=== PATIENT | male | born 1990 | race Caucasian/White ===

== ENCOUNTER → 2019-03-15 | Outpatient (CLI) | payer BC ==
[2019-03-15 16:22] VITALS: BP 122/83; PULSE 106; RESP 16; TEMP 98.7; BMI 55.3
--- NOTE | 2019-03-15 16:48 | P.HPBAR ---
Bariatric H&P - History & Physicial H&P Date: 03/15/19 History & Physicial: Visit/CC: Initial Visit Patient initial contact: Initial weight: 175.087 kg Initial weight in pounds: 386.00 Height: 5 ft 10 in Initial BMI: 55.3 Last weight: Current weight: 175.087 kg Current weight in pounds: 386.00 Current BMI: 55.3 [place] body weight (based on NIH guidelines): 75.296 kg Excess body weight loss: 0.0% The patient is a 28 year-old M who presents for Bariatric Assessment. Patient presents today for bariatric evaluation. Patient's morbid obesity BMI 55. He wishes to undergo sleeve gastrectomy. He has several comorbidities with morbid obesity. Past Medical History Past Medical History: Asthma History of Any Multi-Drug Resistant Organisms: None Reported Past Surgical History: Orthopedic Surgery Past Psychological History: No Psychological Hx Reported Smoking Status: Current every day smoker Past Alcohol Use History: None Reported, Occasional Past Drug Use History: None Reported Surgical - Exam Vital Signs Temp Pulse Resp BP 98.7 F 106 H 16 122/83 03/15/19 16:16 03/15/19 16:16 03/15/19 16:16 03/15/19 16:16 - General well developed - Eyes PERRL - ENT normal pinna, normal nares - Neck no masses - Respiratory normal expansion - Cardiovascular Rhythm: regular - Abdomen Abdomen: soft, non tender Bariatric Assessment & Plan Plan: Morbid obesity, BMI 55. Patient will be scheduled for EGD. Patient is an excellent understanding sleeve gastrectomy. We went over the risks and benefits of procedure. Bariatric Checklist Checklist: Plan: Checklist: EGD: 1. Hiatal hernia: 2. H. Pylori: HgbA1c: Vitamin D: Smoking: Current every day smoker Primary care physician referral: Mavis Negrete Psychiatry clearance: Cardiology clearance: Sleep study: Diet journal: VTE risk score: VTE risk level: Rehab needs at discharge:
[2019-03-15 17:57] LABS: HCT 44.2 % (39.0-53.0); HGB 15.5 gm/dL (13.0-17.5); MCH 30.4 pg (25.0-35.0); MCV 86.9 fL (80.0-100.0); Platelet Count 301 k/uL (150-450); RBC 5.09 m/uL (4.30-5.90); RDW 12.8 % (11.5-15.5); WBC 12.9 k/uL (3.8-10.6)
[2019-03-16 01:13] LABS: Iron Saturation 17.61 (15.00-50.00)
[2019-03-16 01:15] LABS: African American GFR (CKD) 138.9 (60.0-200.0); Albumin 4.6 g/dL (3.80-4.90); Albumin/Globulin Ratio 1.92 (1.60-3.17); Anion Gap 9.6 mmol/L (4.00-12.00); BUN/Creat Ratio 11.25 Ratio (12.00-20.00); Calcium 9.5 mg/dL (8.7-10.3); Carbon Dioxide 24.4 mmol/L (21.6-31.8); Globulin 2.4 g/dL (1.6-3.3); Total Bilirubin 0.3 mg/dL (0.3-1.2)
[2019-03-16 01:21] LABS: Ferritin 109.5 ng/mL (22.0-322.0)
[2019-03-16 01:28] LABS: Folate, Serum 12.4 ng/mL
== END ==
LOC: BARWHC3 15:58
PROVIDERS: ATTEND Surgery
DX: E66.01 Morbid (severe) obesity due to excess calories (principal); F17.200 Nicotine dependence, unspecified, uncomplicated; E61.1 Iron deficiency; E44.0 Moderate protein-calorie malnutrition; Z01.818 Encounter for other preprocedural examination; Z68.43 Body mass index [BMI] 50.0-59.9, adult; Z88.1 Allergy status to other antibiotic agents
CPT/HCPCS: 80053; 82306; 82607; 82728; 82746; 83540; 83550; 84425; 84443; 85027; 93005; 99211

== ENCOUNTER 2019-03-29 11:24 | Day surgery (SDC) | payer BC ==
[2019-03-25 15:32] VITALS: BMI 55.3
[~2019-03-29 11:24] MED LIST: LACTATED RINGERS 1,000 ML IV SCH; LIDOCAINE 1% 20 ML VIAL (10MG/ML) FOR IV START INTRADERMA PRN
[2019-03-29 11:48] VITALS: TEMP 97.1
[2019-03-29] MEDS ORDERED: PROPOFOL 10 MG/ML 20 ML VIAL IV ONE (12:02)
[2019-03-29] MEDS ORDERED: LIDOCAINE 1% INJ 10MG/ML (20 ML MDV) ONE (12:02)
--- NOTE | 2019-03-29 12:11 | P.GSHP ---
History of Present Illness H&P Date: 03/29/19 Chief Complaint: GERD, morbid obesity This is a 28-year-old male who presents today for EGD. He's had issues with GERD. Patient underwent workup for sleeve gastrectomy. His BMI is 55. Past Medical History Past Medical History: Asthma History of Any Multi-Drug Resistant Organisms: None Reported Past Surgical History: Orthopedic Surgery Additional Past Surgical History / Comment(s): LT KNEE SX Past Anesthesia/Blood Transfusion Reactions: No Reported Reaction Smoking Status: Current every day smoker - Past Family History Father Family Medical History: Cancer Medications and Allergies Home Medications Medication Instructions Recorded Confirmed Type Albuterol Nebulized [Ventolin 1 neb INHALATION Q4-6H PRN 05/17/14 03/25/19 History Nebulized] Albuterol Sulfate [Ventolin HFA] 1 - 2 puff INHALATION Q6H PRN 05/17/14 03/29/19 History Allergies Allergy/AdvReac Type Severity Reaction Status Date / Time cefprozil [From Cefzil] Allergy Rash/Hives Verified 03/29/19 11:39 Surgical - Exam Vital Signs Temp Pulse Resp BP Pulse Ox 97.1 F L 73 16 113/62 96 03/29/19 11:47 03/29/19 11:47 03/29/19 11:47 03/29/19 11:47 03/29/19 11:47 - General well developed, well nourished, no distress - Eyes PERRL - ENT normal pinna - Neck no masses - Respiratory normal expansion - Cardiovascular Rhythm: regular - Abdomen Abdomen: soft, non tender Assessment and Plan Assessment: Morbid obesity, BMI 55. Patient will undergo EGD.
--- NOTE | 2019-03-29 12:14 | P.OP ---
Date of Procedure: 03/29/19 Preoperative Diagnosis: Morbid obesity, BMI 55 GERD Postoperative Diagnosis: Antral gastritis Procedure(s) Performed: EGD Anesthesia: MAC Surgeon: Misael Jaffe Pathology: other (Antrum) Condition: stable Disposition: PACU Description of Procedure: The patient's placed on the endoscopy table in the lateral position. He received IV sedation. The gastroscope placed oropharynx passed in the esophagus into the stomach. Scope was then placed through the pylorus. The first and second portion duodenum appeared normal. Scope was then brought back the antrum and this was minimal inflamed. A random biopsies performed. Scope was then retroflexed and the remainder of the stomach appeared normal. There is no significant hiatal hernia. The GE junction was at 47 is. The distal esophagus appeared normal. The proximal esophagus appeared normal. Scope was withdrawn for patient.
[2019-03-29 12:29] VITALS: RESP 18
[2019-03-29 12:40] VITALS: BP 117/75; PULSE 76
== END 2019-03-29 12:56 | disposition home or self-care (01) ==
LOC: ORWHC2ENDO 11:24
PROVIDERS: ATTEND Surgery
DX: K29.50 Unspecified chronic gastritis without bleeding (principal); E66.01 Morbid (severe) obesity due to excess calories; F17.200 Nicotine dependence, unspecified, uncomplicated; J45.909 Unspecified asthma, uncomplicated; K21.9 Gastro-esophageal reflux disease without esophagitis; Z68.43 Body mass index [BMI] 50.0-59.9, adult; Z88.1 Allergy status to other antibiotic agents
CPT/HCPCS: 88305; 43239; J2001; J2704

== ENCOUNTER → 2019-03-29 | Outpatient (CLI) | payer BC ==
[2019-03-29 13:44] VITALS: BMI 55.6
== END ==
LOC: BARWHC3 08:41
PROVIDERS: ATTEND Surgery
DX: E66.01 Morbid (severe) obesity due to excess calories (principal); Z68.43 Body mass index [BMI] 50.0-59.9, adult
CPT/HCPCS: 97804

== ENCOUNTER → 2019-05-03 | Outpatient (CLI) | payer BC ==
[2019-05-03 13:18] VITALS: BP 144/83; PULSE 102; RESP 16; TEMP 98.6; BMI 53.9
== END | disposition home or self-care (01) ==
LOC: BARWHC3 12:56
PROVIDERS: ATTEND Surgery
DX: E66.01 Morbid (severe) obesity due to excess calories (principal); Z68.43 Body mass index [BMI] 50.0-59.9, adult
CPT/HCPCS: 99211

== ENCOUNTER → 2019-05-03 | Outpatient (CLI) | payer BC ==
--- NOTE | 2019-05-03 14:03 | P.HPBAR ---
Bariatric H&P - History & Physicial H&P Date: 05/03/19 History & Physicial: Visit/CC: Patient initial contact: Initial weight: 175.087 kg Initial weight in pounds: Height: Initial BMI: Last weight: Current weight: Current weight in pounds: Current BMI: [place] body weight (based on NIH guidelines): Excess body weight loss: The patient is a 28 year-old M who presents for Bariatric Assessment. Patient presents today for presurgical visit. He is scheduled for gastric sleeve surgery on May 13. He is morbidly obese with BMI over 50. Past Medical History Past Medical History: Asthma History of Any Multi-Drug Resistant Organisms: None Reported Past Surgical History: Orthopedic Surgery Past Psychological History: No Psychological Hx Reported Smoking Status: Current every day smoker Past Alcohol Use History: None Reported, Occasional Past Drug Use History: None Reported Surgical - Exam - General well developed, well nourished, no distress - Eyes PERRL - ENT normal pinna - Neck no masses - Respiratory normal expansion - Cardiovascular Rhythm: regular - Abdomen Abdomen: soft, non tender Bariatric Assessment & Plan Plan: Morbid obesity. Patient will undergo laparoscopic sleeve gastrectomy. We went over the risks and benefits of procedure including possible staple line disruption, bleeding or scarring. Patient is an excellent understanding of the sleeve gastrectomy. Bariatric Checklist Checklist: Plan: Checklist: EGD: 1. Hiatal hernia: 2. H. Pylori: HgbA1c: Vitamin D: Smoking: Current every day smoker Primary care physician referral: Mavis Negrete Psychiatry clearance: Cardiology clearance: Sleep study: Diet journal: VTE risk score: VTE risk level: Rehab needs at discharge:
[2019-05-03 14:54] LABS: Basophils # (A) 0.2 k/uL (0-0.2); Basophils % (A) 1 %; Eosinophils # (A) 0.2 k/uL (0-0.7); Eosinophils % (A) 2 %; HCT 51.8 % (39.0-53.0); HGB 17.7 gm/dL (13.0-17.5); Lymphocytes # (A) 3.8 k/uL (1.0-4.8); Lymphocytes % (A) 29 %; MCHC 34.2 g/dL (31.0-37.0); MCV 87.5 fL (80.0-100.0); Mean Platelet Volume 6.3; Monocytes # (A) 0.6 k/uL (0-1.0); Monocytes % (A) 5 %; Neutrophils # (A) 8.2 k/uL (1.3-7.7); Neutrophils % (A) 62 %; Platelet Count 339 k/uL (150-450); RBC 5.92 m/uL (4.30-5.90); RDW 12.6 % (11.5-15.5); WBC 13.1 k/uL (3.8-10.6)
[2019-05-03 15:11] LABS: ALT 57 U/L (21-72); AST 45 U/L (17-59); African American GFR (CKD) >90 (>60 ml/min/1.73 sqM); Albumin 4.9 g/dL (3.5-5.0); Alkaline Phosphatase 72 U/L (38-126); Anion Gap 12 mmol/L; Blood Urea Nitrogen 14 mg/dL (9-20); Calcium 9.9 mg/dL (8.4-10.2); Carbon Dioxide 21 mmol/L (22-30); Chloride 105 mmol/L (98-107); Glucose 95 mg/dL (74-99); Non-African American GFR(CKD) >90 (>60 ml/min/1.73 sqM); Potassium 4.7 mmol/L (3.5-5.1); Sodium 138 mmol/L (137-145); Total Bilirubin 0.8 mg/dL (0.2-1.3); Total Protein 8.5 g/dL (6.3-8.2)
== END | disposition home or self-care (01) ==
LOC: LABPAT 13:44
PROVIDERS: ATTEND Surgery
DX: Z01.812 Encounter for preprocedural laboratory examination (principal)
CPT/HCPCS: 36415; 80053; 85025

== ENCOUNTER 2019-05-13 06:04 | Inpatient (IN) | payer BC ==
[2019-05-11 16:03] VITALS: BMI 54.1
[~2019-05-13 06:04] MED LIST changes: +DEXAMETHASONE SOD PHOSPHATE 10 MG/ML 1 ML VIAL IV ONE; +ENOXAPARIN 40 MG/0.4 ML SYRINGE SQ ONE; -LACTATED RINGERS 1,000 ML IV SCH; -LIDOCAINE 1% 20 ML VIAL (10MG/ML) FOR IV START INTRADERMA PRN; +ONDANSETRON 4 MG/2 ML VIAL IVP ONE; +ONDANSETRON 4 MG/2 ML VIAL IVP PRN; +ceFAZolin 3 GM in SODIUM CHLORIDE 0.9% 100 ML IVPB ONE
[2019-05-13] MEDS ORDERED: GENTAMICIN IVPB ONE (06:30)
[2019-05-13] MEDS ORDERED: CLINDAMYCIN 900 MG in DEXTROSE 5% IN WATER 50 ML IVPB ONE ×2 (06:30)
[2019-05-13] MEDS ORDERED: SODIUM CHLORIDE 0.9% IVPB ONE (06:30)
[2019-05-13] MEDS: LACTATED RINGERS 1,000 ML IV SCH ×2 (06:43→21:33)
[2019-05-13] MEDS ORDERED: METHYLENE BLUE 50 MG/10 ML AMPUL IRRIGATION ONE ×2 (07:36→08:27)
[2019-05-13] MEDS ORDERED: BUPIVACAIN-EPI 0.25%-1:200,000 30 ML VIAL SQ ONE ×2 (07:36→08:27)
[2019-05-13] MEDS ORDERED: SUCCINYLCHOLINE CHLORIDE VIAL 200 MG/10 ML VIAL IV ONE (07:39)
[2019-05-13] MEDS ORDERED: GLYCOPYRROLATE 0.2 MG/ML 2 ML VIAL ONE (07:39)
[2019-05-13] MEDS ORDERED: PROPOFOL 10 MG/ML 20 ML VIAL IV ONE (07:39)
[2019-05-13] MEDS ORDERED: KETAMINE 10 MG/ML 20 ML VIAL ONE (07:39)
[2019-05-13] MEDS ORDERED: diphenhydrAMINE 50 MG/ML 1 ML VIAL ONE (07:39)
[2019-05-13] MEDS ORDERED: fentaNYL (PF) 50 MCG/ML 2 ML AMP ONE (07:39)
[2019-05-13] MEDS ORDERED: NEOSTIGMINE 1 MG/ML 10 ML VIAL ONE (07:39)
[2019-05-13] MEDS ORDERED: MIDAZOLAM 2 MG/2 ML VIAL ONE (07:39)
[2019-05-13] MEDS ORDERED: ROCURONIUM BROMIDE 10 MG/ML 10 ML VIAL IV ONE (07:39)
[2019-05-13] MEDS ORDERED: LIDOCAINE 1% INJ 10MG/ML (20 ML MDV) ONE (07:39)
--- NOTE | 2019-05-13 07:50 | P.GSHP ---
History of Present Illness H&P Date: 05/13/19 Chief Complaint: Morbid obesity This is a 49-year-old male who presents today for laparoscopic sleeve gastrectomy. Patient had complaints of morbid obesity. His BMI is 51. He has multiple comorbidities. Patient aware the risks of surgery including gastric staple line disruption, bleeding or scarring. Past Medical History Past Medical History: Asthma, Sleep Apnea/CPAP/BIPAP Additional Past Medical History / Comment(s): cpap machine History of Any Multi-Drug Resistant Organisms: None Reported Past Surgical History: Orthopedic Surgery Additional Past Surgical History / Comment(s): meniscus repair, facial reconstruction surgery Past Anesthesia/Blood Transfusion Reactions: No Reported Reaction Smoking Status: Current every day smoker - Past Family History Father Family Medical History: Cancer Medications and Allergies Home Medications Medication Instructions Recorded Confirmed Type Albuterol Nebulized [Ventolin 1 neb INHALATION Q4-6H PRN 05/17/14 05/11/19 History Nebulized] Albuterol Sulfate [Ventolin HFA] 1 - 2 puff INHALATION Q6H PRN 05/17/14 05/11/19 History Allergies Allergy/AdvReac Type Severity Reaction Status Date / Time cefprozil [From Cefzil] Allergy Rash/Hives Verified 05/13/19 06:17 Surgical - Exam Vital Signs Temp Pulse Resp BP Pulse Ox 98.0 F 80 18 116/50 97 05/13/19 06:30 05/13/19 06:30 05/13/19 06:30 05/13/19 06:30 05/13/19 06:30 - General well developed, well nourished, no distress - Eyes PERRL - ENT normal pinna - Neck no masses - Respiratory normal expansion - Cardiovascular Rhythm: regular - Abdomen Abdomen: soft, non tender Assessment and Plan Assessment: Were obesity, BMI 51. We'll perform laparoscopic sleeve gastrectomy.
--- NOTE | 2019-05-13 09:16 | P.OP ---
Date of Procedure: 05/13/19 Preoperative Diagnosis: Morbid obesity, BMI 51 Postoperative Diagnosis: Morbid obesity, BMI 51 Procedure(s) Performed: Laparoscopic sleeve gastrectomy Anesthesia: JUAN MIGUEL Surgeon: Misael Jaffe Estimated Blood Loss (ml): 5 Pathology: other Condition: stable Disposition: PACU Description of Procedure: The patient was placed on the operating room table in the supine position. She received general anesthesia and then was placed in dorsal lithotomy position. Her abdomen was prepped and draped in sterile fashion. The skin incision sites were anesthetized 1% local Xylocaine. And then the skin was incised with an 11 blade in the left lateral position. Using a blade less trocar under direct visualization the peritoneal cavity was entered. The abdomen was insufflated and then a 5 mm laparoscope was placed into the peritoneal cavity. A 5 mm trocar was placed in the right epigastric, and right lateral position. A 15 mm trocar was placed in the supra-umbilical position and another 5 mm trocar was placed in the left lateral position. The left lateral lobe of the liver was retracted. The stomach was visualized. The greater curvature of the stomach was then dissected using the Harmonic scissors. The dissection occurred approximately 5 cm from the pylorus to the level of the left sobia. There was no hiatal hernia seen. At this point a 40-Upper Sorbian bougie dilator was placed the oropharynx and passed into the esophagus and into the stomach by the ALGEBRA TEACHER. The sleeve gastrectomy was performed by using the powered echelon stapler with a seam guard buttress material. Sequential firings of the stapler were performed. The gastric remnant was then brought out through the 15 mm trocar site. The dilator was withdrawn. And a orogastric tube was replaced into the stomach. The stomach was insufflated with 200 mL of methylene blue normal saline. There was no evidence of extravasation. The abdomen was irrigated there is no bleeding seen. The Noam-Bryon device was used to close the 15 mm trocar with 0 Vicryl. Skin was closed with interrupted 3-0 Monocryl sutures once the trochars withdrawn. Dermabond dressing was applied. Patient was sent to recovery in stable condition.
[2019-05-13] MEDS ORDERED: ONDANSETRON 4 MG/2 ML VIAL IVP PRN (09:17)
[2019-05-13] MEDS ORDERED: diphenhydrAMINE 50 MG/ML 1 ML VIAL IVP PRN (09:17)
[2019-05-13] MEDS ORDERED: SIMETHICONE 80 MG CHEWABLE PO PRN (09:17)
[2019-05-13] MEDS ORDERED: NALOXONE 0.4 MG/ML 1 ML VIAL IV PRN (09:17)
[2019-05-13] MEDS: HYDROmorphone 0.5 MG/0.5 ML SYRINGE IVP PRN ×6 (09:35→15:31)
[2019-05-13] MEDS ORDERED: diphenhydrAMINE 50 MG/ML 1 ML VIAL IVP ONE ×2 (10:16→10:31)
[2019-05-13] MEDS ORDERED: LACTATED RINGERS 1,000 ML IV ONE (10:31)
[2019-05-13] MEDS: KETOROLAC 30 MG/ML 1 ML VIAL IVP SCH ×2 (12:01→17:31)
[2019-05-13] MEDS: ALBUTEROL NEBULIZED 2.5 MG/3 ML INHALATION SCH ×3 (12:26→21:01)
[2019-05-13] MEDS: 0.9% NACL WITH KCL 20 MEQ/L 1,000 ML IV SCH ×3 (13:44→22:59)
--- NOTE | 2019-05-13 14:54 | P.CONS ---
History of Present Illness - Reason for Consult Sleep apnea, asthma - History of Present Illness Patient is admitted for laparoscopic sleeve gastrectomy. Sepsis underwent surgery patient is complaining of severe pain in the surgical site area when I went into the room patient is snoring deep sleep and awoke him up he was requesting for pain medications. Patient denied any fever chills nausea vomiting . Patient does have history of sleep apnea his CPAP machine at home Review of Systems Except for those mentioned abortively in HPI rest of the review of systems is negative Past Medical History Past Medical History: Asthma, Sleep Apnea/CPAP/BIPAP Additional Past Medical History / Comment(s): cpap machine History of Any Multi-Drug Resistant Organisms: None Reported Past Surgical History: Orthopedic Surgery Additional Past Surgical History / Comment(s): meniscus repair, facial reconstruction surgery Past Anesthesia/Blood Transfusion Reactions: No Reported Reaction Past Psychological History: No Psychological Hx Reported Smoking Status: Current every day smoker Past Alcohol Use History: Occasional Additional Past Alcohol Use History / Comment(s): smoker for 16 years 1- 1 1/2ppd Past Drug Use History: None Reported - Past Family History Father Family Medical History: Cancer Medications and Allergies Home Medications Medication Instructions Recorded Confirmed Type Albuterol Nebulized [Ventolin 1 neb INHALATION Q4-6H PRN 05/17/14 05/11/19 History Nebulized] Albuterol Sulfate [Ventolin HFA] 1 - 2 puff INHALATION Q6H PRN 05/17/14 05/11/19 History Allergies Allergy/AdvReac Type Severity Reaction Status Date / Time cefprozil [From Cefzil] Allergy Rash/Hives Verified 05/13/19 06:17 Physical Exam Vitals: Vital Signs Temp Pulse Pulse Resp BP Pulse Ox 05/13/19 12:53 12 05/13/19 12:39 88 05/13/19 12:30 86 05/13/19 11:59 97.7 F 88 12 120/70 91 L 05/13/19 11:15 86 16 120/65 95 05/13/19 10:45 86 14 128/66 92 L 05/13/19 10:30 90 16 136/72 96 05/13/19 10:15 88 14 128/76 96 05/13/19 10:00 92 16 120/62 97 05/13/19 09:47 78 14 112/65 93 L 05/13/19 09:43 88 16 111/75 98 05/13/19 09:30 90 16 89/61 92 L 05/13/19 09:19 79 14 121/59 100 05/13/19 09:12 96.7 F L 78 12 137/59 97 05/13/19 06:30 98.0 F 80 18 116/50 97 Intake and Output 05/12/19 05/13/19 05/13/19 22:59 06:59 14:59 Intake Total 300 769.75 Output Total 5 Balance 300 764.75 Intake: IV 300 769.75 Output: Estimated Blood Loss 5 Other: # Voids 0 Weight 161.4 kg 161.4 kg PHYSICAL EXAMINATION: GENERAL: The patient is alert and oriented x3, not in any acute distress. Morbidly obese HEENT: Pupils are round and equally reacting to light. EOMI. No scleral icterus. No conjunctival pallor. Normocephalic, atraumatic. No pharyngeal erythema. No thyromegaly. CARDIOVASCULAR: S1 and S2 present. No murmurs, rubs, or gallops. PULMONARY: Chest is clear to auscultation, no wheezing or crackles. ABDOMEN: Soft, nontender, nondistended, normoactive bowel sounds. No palpable organomegaly. MUSCULOSKELETAL: No joint swelling or deformity. EXTREMITIES: No cyanosis, clubbing, or pedal edema. NEUROLOGICAL: Gross neurological examination did not reveal any focal deficits. SKIN: No rashes. Assessment and Plan Plan: -Morbid obesity: Status post laparoscopic sleeve gastrectomy pain management due to prophylaxis per primary service -Asthma without any acute exacerbation -sleep apnea patient will be resumed on his CPAP machine
[2019-05-13] MEDS: HYDROcodone/APAP 15 ML SOLUTION PO PRN ×2 (15:07→20:31)
[2019-05-13] MEDS: CLINDAMYCIN 900 MG in DEXTROSE 5% IN WATER 50 ML IVPB SCH ×2 (15:12)
[2019-05-13] MEDS: ENOXAPARIN 60 MG/0.6 ML SYRINGE SQ SCH (20:31)
[2019-05-13] MEDS: HYOSCYAMINE ORAL DROPS 1.875 MG/15 ML BOTTLE PO PRN (22:59)
[2019-05-13] MEDS: HYDROmorphone 1 MG/ML 1 ML SYRINGE IVP PRN (23:00)
[2019-05-14] MEDS: KETOROLAC 30 MG/ML 1 ML VIAL IVP SCH ×4 (00:39→14:53)
[2019-05-14] MEDS: CLINDAMYCIN 900 MG in DEXTROSE 5% IN WATER 50 ML IVPB SCH ×2 (00:40)
[2019-05-14] MEDS: HYDROmorphone 1 MG/ML 1 ML SYRINGE IVP PRN ×2 (03:51→09:57)
[2019-05-14] MEDS: 0.9% NACL WITH KCL 20 MEQ/L 1,000 ML IV SCH (05:58)
[2019-05-14 07:22] LABS: Basophils % (A) 0 %; Eosinophils # (A) 0.1 k/uL (0-0.7); Eosinophils % (A) 0 %; HCT 43.3 % (39.0-53.0); Lymphocytes % (A) 24 %; MCH 29.6 pg (25.0-35.0); MCHC 33.5 g/dL (31.0-37.0); MCV 88.5 fL (80.0-100.0); Mean Platelet Volume 7.5; Monocytes # (A) 0.6 k/uL (0-1.0); Monocytes % (A) 5 %; Neutrophils # (A) 8.8 k/uL (1.3-7.7); Neutrophils % (A) 70 %; Platelet Count 252 k/uL (150-450); RDW 12.5 % (11.5-15.5); WBC 12.6 k/uL (3.8-10.6)
[2019-05-14 07:24] LABS: African American GFR (CKD) >90 (>60 ml/min/1.73 sqM); Anion Gap 9 mmol/L; Blood Urea Nitrogen 7 mg/dL (9-20); Calcium 9.2 mg/dL (8.4-10.2); Carbon Dioxide 21 mmol/L (22-30); Chloride 107 mmol/L (98-107); Magnesium 1.8 mg/dL (1.6-2.3); Non-African American GFR(CKD) >90 (>60 ml/min/1.73 sqM); Phosphorus 4.2 mg/dL (2.5-4.5); Potassium 4.8 mmol/L (3.5-5.1); Sodium 137 mmol/L (137-145)
[2019-05-14 07:26] LABS: HGB 14.5 gm/dL (13.0-17.5)
[2019-05-14] MEDS: ENOXAPARIN 60 MG/0.6 ML SYRINGE SQ SCH (07:57)
[2019-05-14] MEDS: HYOSCYAMINE ORAL DROPS 1.875 MG/15 ML BOTTLE PO PRN ×2 (08:02→14:56)
[2019-05-14 08:13] VITALS: RESP 16
[2019-05-14] MEDS ORDERED: PANTOPRAZOLE 40 MG/10 ML VIAL IV SCH (09:00)
[2019-05-14] MEDS: ALBUTEROL NEBULIZED 2.5 MG/3 ML INHALATION SCH ×2 (09:17→12:41)
--- NOTE | 2019-05-14 11:06 | FL ---
EXAMINATION TYPE: FL UGI DATE OF EXAM: 05/14/2019 CLINICAL HISTORY: Status post gastric sleeve TECHNIQUE: Limited esophagram is performed utilizing Isovue 370. A total of 39 seconds of fluoroscop ic time was utilized during procedure. 16 fluoroscopic images were saved. COMPARISON: None. FINDINGS: The patient swallowed contrast without difficulty or delay. Esophageal peristalsis and mo tility are within normal limits. There is good flow of contrast along the diaphragmatic hiatus into proximal stomach and subsequent flow into gastric sleeve. There is good flow from distal sleeve into pylorus and duodenal sweep. Patient remains asymptomatic. There is no evidence of contrast extravasat ion to suggest leak. IMPRESSION: No evidence of leak or significant obstruction status post recent gastric sleeve surgery.
--- NOTE | 2019-05-14 11:47 | P.DS ---
Providers Date of admission: 05/13/19 06:04 Expected date of discharge: 05/14/19 Attending physician: Misael Jaffe Consults: 05/13/19 09:17 Consult Physician Routine Consulting Provider: Jovani Hendrix Consult Reason/Comments: medical management Do you want consulting provider notified?: Yes Primary care physician: [facility] Course: 28-year-old male who underwent laparoscopic sleeve gastrectomy with Dr. Jaffe. Patient is doing well postoperatively without any immediate complications. Postoperative esophagram completed negative for leak. Patient is tolerating clear liquid diet. Vital signs have been stable. Pain is controlled on oral medications. He is stable for discharge home today. Please see EMR for further hospital course details. Discharge diagnosis 1. Morbid obesity, status post laparoscopic sleeve gastrectomy Nurse practitioner note has been reviewed by physician. Signing provider agrees with the documented findings, assessment, and plan of care. Plan - Discharge Summary New Discharge Prescriptions: New Sucralfate [Carafate] 1 gm PO BID #500 ml Bisacodyl [Dulcolax] 5 mg PO DAILY PRN #10 tablet. PRN Reason: Constipation Simethicone 40 mg/0.6 ml Drops [Mylicon Drops] 40 mg PO PCHS PRN #30 ml PRN Reason: gas Omeprazole 40 mg PO DAILY #30 cap Ondansetron Odt [Zofran Odt] 4 mg PO Q8HR PRN #9 tab PRN Reason: Nausea Hydrocodone/Acetaminophen [[place] 5-325] 1 tab PO Q6HR PRN 3 Days #12 tab PRN Reason: Pain No Action Albuterol Sulfate [Ventolin HFA] 1 - 2 puff INHALATION Q6H PRN PRN Reason: Dyspnea Albuterol Nebulized [Ventolin Nebulized] 1 neb INHALATION Q4-6H PRN PRN Reason: Dyspnea Discharge Medication List Albuterol Nebulized [Ventolin Nebulized] 1 neb INHALATION Q4-6H PRN 05/17/14 [History] Albuterol Sulfate [Ventolin HFA] 1 - 2 puff INHALATION Q6H PRN 05/17/14 [History] Bisacodyl [Dulcolax] 5 mg PO DAILY PRN #10 tablet. 05/14/19 [Rx] Hydrocodone/Acetaminophen [[place] 5-325] 1 tab PO Q6HR PRN 3 Days #12 tab 05/14/19 [Rx] Omeprazole 40 mg PO DAILY #30 cap 05/14/19 [Rx] Ondansetron Odt [Zofran Odt] 4 mg PO Q8HR PRN #9 tab 05/14/19 [Rx] Simethicone 40 mg/0.6 ml Drops [Mylicon Drops] 40 mg PO PCHS PRN #30 ml 05/14/19 [Rx] Sucralfate [Carafate] 1 gm PO BID #500 ml 05/14/19 [Rx] [facility] [facility] [place] [place] [facility] [place] 1 Week Activity/Diet/Wound Care/Special Instructions: No driving while taking [place] No lifting over 10 pounds You may shower. No soaking or tub baths Very light activity until you are reevaluated at your follow up appointment with your surgeon Discharge Disposition: HOME SELF-CARE
[2019-05-14] MEDS: 1: MVI, ADULT NO.4 WITH VIT K 10 ML, THIAMINE 100 MG, FOLIC ACID 1 MG, POTASSIUM CHLORID IV SCH ×12 (11:57→12:23)
[2019-05-14] MEDS: HYDROcodone/APAP 15 ML SOLUTION PO PRN (12:00)
[2019-05-14 14:22] VITALS: BP 109/60; PULSE 64; TEMP 98.4
== END 2019-05-14 15:46 | disposition home or self-care (01) | DRG 621 ==
LOC: 2ORMAIN 06:04 → EDSTATUS 07:45 → 4SSUR 11:32
PROVIDERS: ADMIT Surgery; ATTEND Surgery
PROC: 0DB64Z3 Excision of Stomach, Percutaneous Endoscopic Approach, Vertical (ICD-10-PCS; principal; 2019-05-13 07:40)
DX: E66.01 Morbid (severe) obesity due to excess calories (principal); F17.200 Nicotine dependence, unspecified, uncomplicated; G47.30 Sleep apnea, unspecified; J45.909 Unspecified asthma, uncomplicated; K29.50 Unspecified chronic gastritis without bleeding; Z68.43 Body mass index [BMI] 50.0-59.9, adult; Z99.89 Dependence on other enabling machines and devices; Z98.890 Other specified postprocedural states; Z80.9 Family history of malignant neoplasm, unspecified; Z88.1 Allergy status to other antibiotic agents
CPT/HCPCS: 74240; 80051; 82310; 82565; 83735; 84100; 84520; 85025; 88307; 94640; 94760; 94762

== ENCOUNTER → 2019-05-17 | Outpatient (CLI) | payer BC ==
[~2019-05-17] MED LIST changes: -DEXAMETHASONE SOD PHOSPHATE 10 MG/ML 1 ML VIAL IV ONE; -ENOXAPARIN 40 MG/0.4 ML SYRINGE SQ ONE; -ONDANSETRON 4 MG/2 ML VIAL IVP ONE; -ONDANSETRON 4 MG/2 ML VIAL IVP PRN; +SODIUM CHLORIDE 0.9% 1,000 ML IV ONE; +SODIUM CHLORIDE 0.9% 1,000 ML IV SCH; -ceFAZolin 3 GM in SODIUM CHLORIDE 0.9% 100 ML IVPB ONE
[2019-05-17 11:28] VITALS: BP 116/78; PULSE 88; RESP 20; TEMP 98.1
[2019-05-17] MEDS: SODIUM CHLORIDE 0.9% 500 ML 500 ML in EMPTY BAG 1 BAG IV PRN ×2 (12:34→13:03)
== END | disposition home or self-care (01) ==
LOC: PROCWHC3 11:01
PROVIDERS: ATTEND Surgery
DX: E86.0 Dehydration (principal)
CPT/HCPCS: 96360; 96361

== ENCOUNTER → 2019-05-24 | Outpatient (CLI) | payer BC ==
[2019-05-24 14:35] VITALS: BMI 49.0
[2019-05-24 15:25] VITALS: BP 116/62; PULSE 80; TEMP 98.2
--- NOTE | 2019-06-28 15:27 | P.HPBAR ---
Bariatric H&P - History & Physicial H&P Date: 05/24/19 History & Physicial: Visit/CC: two week follow up sleeve follow up Patient initial contact: Initial weight: 175.087 kg Initial weight in pounds: 386.00 Height: 5 ft 10 in Initial BMI: 55.3 Last weight: Current weight: 155.129 kg Current weight in pounds: 342.00 Current BMI: 49.0 [place] body weight (based on NIH guidelines): 75.296 kg Excess body weight loss: 20.0% The patient is a 28 year-old M who presents for Bariatric Assessment. The patient is 2 weeks postop from sleeve gastrectomy. He is doing quite well. He's had no real complaints. Past Medical History Past Medical History: Asthma Additional Past Medical History / Comment(s): cpap machine History of Any Multi-Drug Resistant Organisms: None Reported Past Surgical History: Orthopedic Surgery Additional Past Surgical History / Comment(s): meniscus repair, facial reconstruction surgery Past Anesthesia/Blood Transfusion Reactions: No Reported Reaction Smoking Status: Current every day smoker - Past Family History Father Family Medical History: Cancer Surgical - Exam Vital Signs Temp Pulse BP 98.2 F 80 116/62 05/24/19 15:20 05/24/19 15:20 05/24/19 15:20 - General well developed, well nourished - Eyes PERRL - Abdomen Incision sites clean and intact Abdomen: soft, non tender Bariatric Assessment & Plan Plan: Status post sleeve gastrectomy. Patient is a well. He'll follow-up in the office in 2 weeks Bariatric Checklist Checklist: Plan: Checklist: EGD: 1. Hiatal hernia: 2. H. Pylori: HgbA1c: Vitamin D: Smoking: Current every day smoker Primary care physician referral: BEATA Psychiatry clearance: Cardiology clearance: Sleep study: Diet journal: VTE risk score: VTE risk level: Rehab needs at discharge:
== END | disposition home or self-care (01) ==
LOC: BARWHC3 12:47
PROVIDERS: ATTEND Surgery
DX: Z48.815 Encounter for surgical aftercare following surgery on the digestive system (principal); Z98.84 Bariatric surgery status; F17.200 Nicotine dependence, unspecified, uncomplicated
CPT/HCPCS: 97802; 99211

== ENCOUNTER → 2019-06-14 | Outpatient (CLI) | payer BC ==
[2019-06-14 15:40] LABS: HCT 51.1 % (39.0-53.0); HGB 16.5 gm/dL (13.0-17.5); MCH 28.1 pg (25.0-35.0); MCHC 32.2 g/dL (31.0-37.0); MCV 87.2 fL (80.0-100.0); Platelet Count 239 k/uL (150-450); RBC 5.86 m/uL (4.30-5.90); RDW 12.9 % (11.5-15.5); WBC 7.1 k/uL (3.8-10.6)
--- NOTE | 2019-06-14 15:42 | P.HPBAR ---
Bariatric H&P - History & Physicial H&P Date: 06/14/19 History & Physicial: Visit/CC: Patient initial contact: Initial weight: 175.087 kg Initial weight in pounds: Height: Initial BMI: Last weight: Current weight: Current weight in pounds: Current BMI: [place] body weight (based on NIH guidelines): Excess body weight loss: The patient is a 28 year-old M who presents for Bariatric Assessment. Patient presents today for sleeve gastrectomy follow-up. He has lost 17 pounds since his last visit. He's had some mild GERD. Past Medical History Past Medical History: Asthma Additional Past Medical History / Comment(s): cpap machine History of Any Multi-Drug Resistant Organisms: None Reported Past Surgical History: Orthopedic Surgery Additional Past Surgical History / Comment(s): meniscus repair, facial reconstruction surgery Past Anesthesia/Blood Transfusion Reactions: No Reported Reaction Past Psychological History: No Psychological Hx Reported Smoking Status: Current every day smoker Past Alcohol Use History: None Reported, Occasional Additional Past Alcohol Use History / Comment(s): smoker for 16 years 1- 1 1/2ppd Past Drug Use History: None Reported - Past Family History Father Family Medical History: Cancer Surgical - Exam - General well developed, well nourished, no distress - ENT normal pinna - Abdomen Abdomen: soft, non tender Bariatric Assessment & Plan Plan: Status post sleeve gastrectomy. Patient's weight loss is excellent. His GERD is minimal and will be observed. He'll follow-up in 4 weeks. Bariatric Checklist Checklist: Plan: Checklist: EGD: 1. Hiatal hernia: 2. H. Pylori: HgbA1c: Vitamin D: Smoking: Current every day smoker Primary care physician referral: BEATA Psychiatry clearance: Cardiology clearance: Sleep study: Diet journal: VTE risk score: VTE risk level: Rehab needs at discharge:
[2019-06-15 02:27] LABS: African American GFR (CKD) 146.8 (60.0-200.0); Albumin 4.5 g/dL (3.80-4.90); Albumin/Globulin Ratio 2.14 (1.60-3.17); Anion Gap 10.4 mmol/L (4.00-12.00); BUN/Creat Ratio 11.43 Ratio (12.00-20.00); Calcium 9.4 mg/dL (8.7-10.3); Carbon Dioxide 23.6 mmol/L (21.6-31.8); Globulin 2.1 g/dL (1.6-3.3); Non-African American GFR(CKD) 126.6 (60.0-200.0); Total Bilirubin 0.5 mg/dL (0.2-1.2); Total Protein 6.6 g/dL (6.2-8.2)
[2019-06-15 02:59] LABS: Folate, Serum 10.4 ng/mL
== END | disposition home or self-care (01) ==
LOC: LABWHC1 14:36
PROVIDERS: ATTEND Surgery
DX: E66.01 Morbid (severe) obesity due to excess calories (principal); E44.0 Moderate protein-calorie malnutrition
CPT/HCPCS: 36415; 80053; 82306; 82607; 82746; 84425; 84443; 85027

== ENCOUNTER → 2019-06-14 | Outpatient (CLI) | payer BC ==
[2019-06-14 14:11] VITALS: BP 119/63; PULSE 88; RESP 16; TEMP 99; BMI 46.9
== END | disposition home or self-care (01) ==
LOC: BARWHC3 13:45
PROVIDERS: ATTEND Surgery
DX: E66.01 Morbid (severe) obesity due to excess calories (principal); Z68.42 Body mass index [BMI] 45.0-49.9, adult; Z98.84 Bariatric surgery status
CPT/HCPCS: 97803; 99211

== ENCOUNTER → 2019-07-12 | Outpatient (CLI) | payer BC ==
[2019-07-12 13:37] VITALS: BP 118/77; PULSE 74; TEMP 98.2; BMI 44.3
--- NOTE | 2019-07-12 14:03 | P.HPBAR ---
Bariatric H&P - History & Physicial H&P Date: 07/12/19 History & Physicial: Visit/CC: 8 week sleeve f/u Patient initial contact: Initial weight: 175.087 kg Initial weight in pounds: 386.00 Height: 5 ft 10 in Initial BMI: 55.3 Last weight: Current weight: 140.16 kg Current weight in pounds: 309.00 Current BMI: 44.3 [place] body weight (based on NIH guidelines): 75.296 kg Excess body weight loss: 35.0% The patient is a 28 year-old M who presents for Bariatric Assessment. Patient presents today for sleeve gastrectomy follow-up. He's had some mild GERD. He is an excellent weight loss. He's lost 16 pounds since last visit. Past Medical History Past Medical History: Asthma Additional Past Medical History / Comment(s): cpap machine History of Any Multi-Drug Resistant Organisms: None Reported Past Surgical History: Bariatric Surgery, Orthopedic Surgery Additional Past Surgical History / Comment(s): meniscus repair, facial reconstruction surgery , gastric sleeve ( 05/13/19) Past Anesthesia/Blood Transfusion Reactions: No Reported Reaction Past Psychological History: No Psychological Hx Reported Smoking Status: Current every day smoker Past Alcohol Use History: None Reported, Occasional Additional Past Alcohol Use History / Comment(s): smoker for 16 years 1- 1 1/2ppd Past Drug Use History: None Reported - Past Family History Father Family Medical History: Cancer Surgical - Exam Vital Signs Temp Pulse BP 98.2 F 74 118/77 07/12/19 13:35 07/12/19 13:35 07/12/19 13:35 - General well developed, well nourished, no distress - Eyes PERRL - ENT normal pinna - Neck no masses - Respiratory normal expansion - Cardiovascular Rhythm: regular - Abdomen Abdomen: soft, non tender Bariatric Assessment & Plan Plan: Status post sleeve gastrectomy. Patient's crit is minimal on be observed. He'll follow-up in one month. Bariatric Checklist Checklist: Plan: Checklist: EGD: 1. Hiatal hernia: 2. H. Pylori: HgbA1c: Vitamin D: Smoking: Current every day smoker Primary care physician referral: Dr. Nacho Alexandre Psychiatry clearance: Cardiology clearance: Sleep study: Diet journal: VTE risk score: VTE risk level: Rehab needs at discharge:
== END | disposition home or self-care (01) ==
LOC: BARWHC3 13:00
PROVIDERS: ATTEND Surgery
DX: Z48.815 Encounter for surgical aftercare following surgery on the digestive system (principal); F17.200 Nicotine dependence, unspecified, uncomplicated; Z98.84 Bariatric surgery status
CPT/HCPCS: 99211

== ENCOUNTER → 2019-08-09 | Outpatient (CLI) | payer BC ==
[2019-08-09 14:46] VITALS: BP 117/69; PULSE 67; RESP 16; TEMP 98; BMI 42.5
[2019-08-09 15:20] LABS: HCT 50.7 % (39.0-53.0); HGB 16.7 gm/dL (13.0-17.5); MCH 28.9 pg (25.0-35.0); MCHC 32.9 g/dL (31.0-37.0); MCV 87.9 fL (80.0-100.0); Mean Platelet Volume 7.6; Platelet Count 269 k/uL (150-450); RBC 5.77 m/uL (4.30-5.90); RDW 13.1 % (11.5-15.5); WBC 11.3 k/uL (3.8-10.6)
[2019-08-09 21:03] LABS: African American GFR (CKD) 156.4 (60.0-200.0); Albumin 4.4 g/dL (3.80-4.90); Albumin/Globulin Ratio 2.1 (1.60-3.17); Anion Gap 4.7 mmol/L (4.00-12.00); BUN/Creat Ratio 13.33 Ratio (12.00-20.00); Calcium 9.1 mg/dL (8.7-10.3); Carbon Dioxide 28.3 mmol/L (21.6-31.8); Globulin 2.1 g/dL (1.6-3.3); Non-African American GFR(CKD) 134.9 (60.0-200.0); Potassium 4.1 mmol/L (3.5-5.5); Total Bilirubin 0.4 mg/dL (0.3-1.2); Total Protein 6.5 g/dL (6.2-8.2)
[2019-08-09 21:13] LABS: Folate, Serum 6.3 ng/mL
== END | disposition home or self-care (01) ==
LOC: BARWHC3 13:07
PROVIDERS: ATTEND Surgery
DX: Z48.815 Encounter for surgical aftercare following surgery on the digestive system (principal); Z98.84 Bariatric surgery status; F17.200 Nicotine dependence, unspecified, uncomplicated
CPT/HCPCS: 36415; 80053; 82306; 82607; 82746; 84425; 84443; 85027; 99211

== ENCOUNTER 2020-10-01 20:52 | Emergency (ER) | payer BC, OTHER ==
[2020-10-01 21:12] VITALS: BP 100/59; PULSE 67; RESP 20; TEMP 98.4
[2020-10-01] MEDS ORDERED: MORPHINE SULFATE 4 MG/ML SYRINGE IM STA (21:32)
[2020-10-01] MEDS ORDERED: KETOROLAC 15 MG/ML 1 ML VIAL IM STA (21:32)
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
== END 2020-10-01 22:30 | disposition home or self-care (01) ==
LOC: EC 20:52
DX: M43.6 Torticollis (principal); M54.2 Cervicalgia; F17.200 Nicotine dependence, unspecified, uncomplicated; J45.909 Unspecified asthma, uncomplicated; V89.2XXA Person injured in unspecified motor-vehicle accident, traffic, initial encounter
CPT/HCPCS: 72125; 99284; 96372; J2270; J1885

== ENCOUNTER → 2020-10-19 | Outpatient (CLI) | payer OTHER ==
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
== END | disposition home or self-care (01) ==
LOC: RADMRIMAIN 13:18
PROVIDERS: ATTEND Orthopaedic Surgery
DX: M71.312 Other bursal cyst, left shoulder (principal); M19.012 Primary osteoarthritis, left shoulder; M25.812 Other specified joint disorders, left shoulder; M77.8 Other enthesopathies, not elsewhere classified